=== PATIENT | male | born 1970 | race Caucasian/White ===

== ENCOUNTER 2022-04-01 00:34 | Emergency (ER) | payer SELFPAY ==
[2022-04-01] VITALS (34 sets, daily range): BP systolic 117–135; BP diastolic 87–95; PULSE 72–102; RESP 13–23; TEMP 36.6; O2SAT 100
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
[2022-04-01] MEDS: SODIUM CHLORIDE 0.9% IV 1,000 ML 999 ML IV CONT (02:29)
[2022-04-01 02:30] LABS: Basophils Absolute Auto 0.1 K/mm3 (0.0-0.1); Basophils Percent Auto 0.6 % (0.2-1.2); Eosinophils Absolute Auto 0.2 K/mm3 (0-0.3); Eosinophils Percent Auto 2.6 % (0-4.4); Hematocrit 45.4 % (42.0-52.0); Hemoglobin 14.7 g/dL (14.0-18.0); Immature Granulocyte Absolute 0.04 K/mm3 (0.00-0.031); Immature Granulocyte Percent A 0.5 % (0-0.5); Lymphocytes Absolute Auto 1.51 K/mm3 (0.9-3.2); Lymphocytes Percent Auto 17.3 % (18.3-44.2); Mean Corpuscular HGB Conc 32.4 g/dl (32-36); Mean Corpuscular Hemoglobin 30.1 pg (26-34); Mean Platelet Volume 10.2 fl (7.4-10.4); Monocytes Percent Auto 11.1 % (2.6-8.5); Neutrophils Percent Auto 67.9 % (45.5-73.1); Platelet Count Result 255 k/mm3 (150-375); Red Blood Count 4.88 M/mm3 (4.6-6.20); White Blood Count 8.8 K/mm3 (4.5-10.0)
[2022-04-01] MEDS: MORPHINE SULFATE (*CRX) 2 MG/ML INJ IV PUSH ×2 (02:30→03:47)
[2022-04-01] MEDS: ONDANSETRON INJ 4 MG/2 ML VIAL IV PUSH (02:30)
[2022-04-01 03:02] LABS: Alanine Aminotransferase 33 U/L (6-50); Alkaline Phosphatase 85 U/L (38-126); Aspartate Amino Transferase 49 U/L (17-59); Bilirubin,Total 0.6 mg/dL (0.2-1.3); Blood Urea Nitrogen 17 mg/dL (9-20); Calcium 8.5 mg/dL (8.4-10.2); Carbon Dioxide 28 mmol/L (22-30); Creatine Kinase 630 U/L (55-170); Estimated Glomerular Filt Rate > 60; Glucose 101 mg/dL (65-110); Potassium 4.4 mmol/L (3.4-5.0); Sodium 136 mmol/L (137-145)
[2022-04-01 03:24] LABS: Anion Gap 4 mmol/L (8-16); Chloride 104 mmol/L (98-107)
--- NOTE | 2022-04-01 03:49 | PC.NURSE ---
Updated pt on plan of care. pt resting comfortably inbed, NAD, respirations even and unlabored.
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
--- NOTE | 2022-04-01 06:35 | PC.NURSE ---
fiberglass splint applied to pt L ankle. (posterior and stirrup). Pt tolerated well. Dr. Valdivia at bedside and approves of splint.
== END 2022-04-01 07:29 | disposition home or self-care (01) ==
PROVIDERS: Emergency Provider Physician Assistant
DX: S89.392A Other physeal fracture of lower end of left fibula, initial encounter for closed fracture (principal); S92.355A Nondisplaced fracture of fifth metatarsal bone, left foot, initial encounter for closed fracture; S22.42XA Multiple fractures of ribs, left side, initial encounter for closed fracture; M47.812 Spondylosis without myelopathy or radiculopathy, cervical region; Y08.02XA Assault by strike by baseball bat, initial encounter
CPT/HCPCS: 29515; 36415; 70450; 70486; 71111; 72125; 73560; 73610; 73630; 80053; 82550; 85025; 96361; 96374; 96375; 96376; 99284; J2270; J2405; J7030

== ENCOUNTER 2022-04-10 02:28 | Emergency (ER) | payer SELFPAY ==
--- NOTE | ~2022-04-10 | XR_ITS ---
Left foot Technique: AP, oblique, and lateral views were obtained. Clinical History: Fracture Findings: There is an oblique, traumatic fracture through the distal fifth metatarsal shaft. Fracture is mildly displaced approximately 5 mm. No other fracture or dislocation seen in the foot.. Joint sp aces are preserved without erosive or degenerative change. Soft tissues are unremarkable. Impression: Traumatic, oblique, displaced fracture of the distal fifth metatarsal shaft. Reviewed, dictated and finalized at location . D OPERATIONS TECHNICIAN Impression: Traumatic, oblique, displaced fracture of the distal fifth metatarsal shaft.
--- NOTE | ~2022-04-10 | XR_ITS ---
Left ankle Technique: AP, oblique, and lateral views were obtained. Clinical History: Fracture Findings: There is a transverse, nondisplaced fracture of the distal fibular shaft, located 6.5 cm pr oximal to the distal tip of the lateral malleolus. There is an area of sclerotic change of the distal tibial metaphyseal region, suggestive of nonossifying fibroma.. Ankle mortise and other visualized j oint spaces are preserved. Soft tissues are otherwise unremarkable. Impression: Transverse, nondisplaced traumatic fracture of the distal fibular shaft, as detailed above. 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 Reviewed, dictated and finalized at location M. RCYCLE SALES ASSOCIATE Impression: Transverse, nondisplaced traumatic fracture of the distal fibular shaft, as det aden above. Sclerotic lesion suggestive of nonossifying fibroma at the distal tibial metaph yseal region.
[2022-04-10 02:31] VITALS: BP 152/96; PULSE 80; RESP 18; TEMP 36.6; O2SAT 100
[2022-04-10] MEDS: IBUPROFEN 600 MG TABLET PO (03:23)
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
--- NOTE | 2022-04-10 07:47 | PC.NURSE ---
mobile home lot utility worker at bedside.
== END 2022-04-10 09:07 | disposition home or self-care (01) ==
PROVIDERS: Emergency Provider General Practice; PCP Emergency Medicine
DX: S92.352A Displaced fracture of fifth metatarsal bone, left foot, initial encounter for closed fracture (principal); Y09 Assault by unspecified means
CPT/HCPCS: 29515; 73610; 73630; 99284; A9270

== ENCOUNTER 2022-08-03 10:40 | Emergency (ER) | payer SELFPAY ==
[2022-08-03 10:47] VITALS: BP 117/81; PULSE 97; RESP 26; TEMP 36.5; O2SAT 100
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
--- NOTE | 2022-08-03 11:05 | ED.GENADULT ---
HPI - General Adult General Chief complaint: Unspecified Stated complaint: food bolus Time Seen by Provider: 08/03/22 11:01 History of Present Illness HPI narrative: 52-year-old male presents to the emergency room after feeling like he had some meat stuck in his throat through the night. He says that since he has been here it finally passed through and he feels like it is cleared. He has been able to drink a glass of water without difficulty. He declines IV or lab testing at this point. He says he is just tired and needs some sleep. No chest pain or abdominal pain. Denies any other symptoms of illness. Related Data Allergies Allergy/AdvReac Type Severity Reaction Status Date / Time Penicillins Allergy Anaphylaxis Verified 04/01/22 02:09 Review of Systems Review of Systems: CONSTITUTIONAL: Denies fever, chills, or sweats. EYES: Denies visual changes, redness, or discharge. ENT: Denies rhinorrhea, congestion, sore throat, or otalgia. CARDIOVASCULAR: Denies chest pain, palpitations, or edema. RESPIRATORY: Denies cough or dyspnea. GASTROINTESTINAL: as per HPI GENITOURINARY: Denies dysuria or hematuria. SKIN: Denies rash or itching. MUSCULOSKELETAL: Denies back pain, joint pain, or myalgia. NEUROLOGIC: Denies headache, numbness, dizziness, or weakness. PSYCHIATRIC: Denies anxiety or depression. PMFSH Past Medical History Medical History Patient denies medical problems Social History Social History Smoking status: Never smoker Exam Narrative: GENERAL: Well-appearing, well-nourished, and in no acute distress. HEAD: Normocephalic, atraumatic. EYES: PERRLA and EOMI. NECK: Supple. No adenopathy or masses. No carotid bruits or JVD CHEST: Clear to auscultation. No respiratory distress. No wheezes rales or rhonchi HEART: Regular rate and rhythm. No murmur heard. Normal peripheral pulses. ABDOMEN: Soft, nontender, nondistended, normal active bowel sounds. EXTREMITIES: Normal range of motion. No edema. SKIN: Warm, dry, no rash. NEURO: No focal deficits. Alert and oriented x3. PSYCH: Normal mood and affect. Course Vital Signs Vital signs: Vital Signs Temperature 36.5 C 08/03/22 10:47 Pulse Rate 97 08/03/22 10:47 Respiratory Rate 26 H 08/03/22 10:47 Blood Pressure 117/81 08/03/22 10:47 Pulse Oximetry 100 08/03/22 10:47 Oxygen Delivery Room Air 08/03/22 10:47 Temperature 36.5 C 08/03/22 10:47 Pulse Rate 97 08/03/22 10:47 Respiratory Rate 26 H 08/03/22 10:47 Blood Pressure 117/81 08/03/22 10:47 Pulse Oximetry 100 08/03/22 10:47 Oxygen Delivery Room Air 08/03/22 10:47 Medical Decision Making Vital Signs Vital Signs: Vital Signs Temperature 36.5 C 08/03/22 10:47 Pulse Rate 97 08/03/22 10:47 Respiratory Rate 26 H 08/03/22 10:47 Blood Pressure 117/81 08/03/22 10:47 Pulse Oximetry 100 08/03/22 10:47 Oxygen Delivery Room Air 08/03/22 10:47 Temperature 36.5 C 08/03/22 10:47 Pulse Rate 97 08/03/22 10:47 Respiratory Rate 26 H 08/03/22 10:47 Blood Pressure 117/81 08/03/22 10:47 Pulse Oximetry 100 08/03/22 10:47 Oxygen Delivery Room Air 08/03/22 10:47 Discharge Plan Discharge Clinical Impression: Dysphagia Patient Disposition: Home, Self-Care Condition: Stable Instructions: Antibiotic Form, Esophageal Foreign Body (ED) Additional Instructions: Follow-up with primary care provider within the week. You may need a referral to a GI provider for endoscopy to evaluate for any abnormality that could cause blockage. Prescriptions: No Action acetaminophen 500 mg tablet 1,000 mg PO TID PRN (Reason: joy) 7 Days Qty: 42 0RF ibuprofen 800 mg tablet 800 mg PO TID PRN (Reason: pain) 7 Days Qty: 21 0RF hydrocodone-acetaminophen 5-325 mg tablet 12 tablet PO Q4H PRN (Reason: pain)
--- NOTE | 2022-08-03 11:16 | PC.NURSE ---
pt states he had a piece of steak stuck in his throat for 8-10 hours. states it finally went down 10 minutes ago while drinking water and now he feels better.
[2022-08-03 11:38] VITALS: BP 142/84; PULSE 84; RESP 16; O2SAT 99
== END 2022-08-03 11:40 | disposition home or self-care (01) ==
PROVIDERS: Emergency Provider Nurse Practitioner Family
DX: R13.10 Dysphagia, unspecified (principal)
CPT/HCPCS: 99281

== ENCOUNTER 2024-10-17 08:08 | Emergency (ER) | payer OTHER, MEDICAID, SELFPAY ==
--- NOTE | ~2024-10-17 | CT_ITS ---
EXAMINATION: CT cervical spine wo con DATE: 10/17/2024 09:02 INDICATION: Neck pain TECHNIQUE: Computed tomography (CT) of the cervical spine was performed without intravenous contrast. Automated exposure control and iterative reconstruction technique were employed. The dose-length product was 243.05 mGy-cm. COMPARISON: None FINDINGS: Alignment is normal. Vertebral body heights are normal. No fracture. Moderate disc height loss and uncovertebral osteoarthritis at C3-C4 through C6-C7 and mild disc height loss at C2-C3 and C7-T1. Posterior disc osteophyte complexes contribute to mild central canal stenosis at C3-C4 through C6-C7. Severe facet osteoarthritis on the left at C2-C3 through C4-C5 and bilaterally at C7-T1 and T1-T2. Mild to moderate facet osteoarthritis throughout the remainder of the cervical spine. Multilevel uncovertebral osteoarthritis contributes to moderate neural from stenosis on the left at C3-C4, bilaterally at C5-C6 and C6-C7 with mild neural from stenosis throughout the remainder of the cervical spine. Cervic al soft tissues are unremarkable. Mild emphysema the visualized upper lungs with mild biapical pleural-parenchymal scarring. IMPRESSION: 1. Moderate cervical spondylosis. No acute osseous adenopathy. 2. Mild emphysema. Reviewed, dictated and finalized at location A.
--- OUTSIDE RECORDS SUMMARY | 2024-10-17 08:10 | XMS_ITS | Clinical Summary ---
Author Organization [facility] Address [address] [place] [id number] Care Team Providers Care Tactical Air Defense Controller Name Role Phone Unknown, Notinfile Primary Care Provider Unavail able Allergies Active Allergy Reactions Criticality Noted Date Comments Penicillins Hives Medium 08/05/2023 Social History Tobacco Use Types Packs/Day Years Used Date Smoking Tobacco: Never Assessed Personal Safety Answer Date Recorded Have you ever been in or are you currently in a harmful physical or emotional relationship or is someone making you feel afraid or unsafe? Denies 08/05/2023 Sex and Gender Information Value Date Recorded Sex Assigned at Not on file Legal Sex Male 9:14 PM CDT Gender Identity Not on file Sexual Orientation Not on file Last Filed Vital Signs Vital Sign Reading Time Taken Comments Blood Pressure 146/98 08/05/2023 11:49 PM CDT Pulse 88 08/05/2023 11:49 PM CDT Temperature 37.3 C (99.1 F) 08/05/2023 9:15 PM CDT Respiratory Rate 16 08/05/2023 9:15 PM CDT Oxygen Saturation 99% 08/05/2023 11:49 PM CDT Inhaled Oxygen Concentration - - Weight 67.3 kg (148 lb 5.9 oz) 08/05/2023 9:15 P M CDT Height 177.8 cm (5' 10) 08/05/2023 9:15 PM CDT Body Mass Index 21.29 08/05/2023 9:15 PM CDT Plan of Treatment [place] [id number] Care Teams Tactical Air Defense Controller Relationship Specialty Start Date End Date Unknown, Notinfile PCP - General 08/05/23
--- OUTSIDE RECORDS SUMMARY | 2024-10-17 08:10 | XMS_ITS | Clinical Summary ---
Author Organization [facility] Laura Ratliff nob Address [address] [place] [address] Care Team Providers Care Tie Sawyer Name Role Phone Unavailable Primary Care Provider Unavailabl e Allergies Active Allergy Reactions Criticality Noted Date Comments Penicillins Other (See Comments) Low 10/23/2023 Reported as a child Medications doxycycline hyclate (VIBRAMYCIN) 100 mg capsule Take 1 Capsule (100 mg) by mouth 2 times daily. 28 Capsule 10/23/2023 Active Active Problems No known active problems Encounters Date Type Department Care Team Description 08/04/2024 External Device Data [facility] ABSTRACTION Provider, Abstract from Last 3 Months Social History Tobacco Use Types Packs/Day Years Used Date Smoking Tobacco: Never Smokeless Tobacco: Never Tobacco Cessation:Counseling Given: Not Answered Alcohol Use Standard Drinks/Week Comments Not Currently 0 (1 standard drink = 0.6 oz pur e alcohol) Sex and Gender Information Value Date Recorded Sex Assigned at Not on file Legal Sex Male 4:23 PM CDT Gender Identity Not on file Sexual Orientation Not on file Last Filed Vital Signs Vital Sign Reading Time Taken Comments Blood Pressure 130/72 10/23/2023 4:33 PM CDT Pulse 100 10/23/2023 4:33 PM CDT Temperature 37.2 C (98.9 F) 10/23/2023 4:33 PM CDT Respiratory Rate 16 10/23/2023 4:33 PM CDT Oxygen Saturation 98% 10/23/2023 4:33 PM CDT Inhaled Oxygen Concentration - - Weight 68.9 kg (152 lb) 10/23/2023 4:33 PM CDT Height 177.8 cm (5' 10) 10/23/2023 4:33 PM CDT Body Mass Index 21.81 10/23/2023 4:33 PM CDT Plan of Treatment Health Maintenance Due Date Last Done Comments DTAP/TDAP/TD VACCINES (1 - Tdap) 1989 HEPATITIS B VACCINES (1 of 3 - 19+ 3-dose series) 06/1989 COLORECTAL SCREENING 07/17/2015 Colorectal Cancer Screening 07/17/2015 FIT-DNA Q 3 years 07/17/2015 FIT/FOBT Q 1 year 07/17/2015 Flex Sig/CT Colonography Q 5 years 07/17/2015 ZOSTER VACCINE (1 of 2) 2020 INFLUENZA VACCINE (#1) 2024 10/23/2023
[2024-10-17 08:12] VITALS: BP 139/95; PULSE 79; RESP 16; TEMP 36.6; O2SAT 100
--- OUTSIDE RECORDS SUMMARY | 2024-10-17 09:12 | XMS_ITS | Clinical Summary ---
Author Organization [facility] Laura Ratliff nob Address [address] [place] [address] Care Team Providers Care Cabana Attendant Name Role Phone Unavailable Primary Care Provider [...]
--- OUTSIDE RECORDS SUMMARY | 2024-10-17 09:12 | XMS_ITS | Clinical Summary ---
Author Organization [facility] Address [address] [place] [id number] Care Team Providers Care Utilities Estimator And Drafter Name Role Phone Unknown, Notinfile Primary Care [...] of Treatment Not on file Insurance IDPA Care Teams Utilities Estimator And Drafter Relationship Specialty Start Date End Date Unknown, Notinfile PCP - General 08/05/23
--- NOTE | 2024-10-17 09:24 | PC.NURSE ---
Patient refused IM medication stating I really dont like shots. Provider will be made aware patient is requesting PO medication instead
--- NOTE | 2024-10-17 09:58 | ED_ITS ---
HPI - General Adult General Chief complaint: Neck Pain/Injury Stated complaint: neck pain Time Seen by Provider: 10/17/24 08:46 History of Present Illness HPI narrative: Patient 4-year-old gentleman emergency department with chief complaint of pain. He reports that ?he was bending over to pickle processor harness and started having pain in the left side of his neck that radiates to his upper shoulder patient reports pain is worse with movement and improved with rest Related Data Allergies Allergy/AdvReac Type Severity Reaction Status Date / Time Penicillins Allergy Anaphylaxis Verified 10/17/24 08:16 Review of Systems Review of Systems: A 10 system review of systems was completed on the patient and is negative except for what is stated in the HPI. Nursing and ancillary documentation was reviewed. [facility] Past Medical History Medical History Patient denies medical problems Social History Social History Smoking status: Never smoker Exam Narrative: GENERAL: Well-appearing, well-nourished, and in no acute distress. HEAD: Normocephalic, atraumatic. EYES: PERRLA and EOMI. ENT: Nares clear, no rhinorrhea or epistaxis. Mucous membranes moist. NECK: Supple. Tenderness to palpation in the paraspinous muscles in left-sided neck CHEST: Clear to auscultation. No respiratory distress. HEART: Regular rate and rhythm. No murmur heard. Normal peripheral pulses. ABDOMEN: Soft, nontender, nondistended, normal active bowel sounds. EXTREMITIES: Normal range of motion. No edema. SKIN: Warm, dry, no rash. NEURO: No focal deficits. Alert and oriented x3. PSYCH: Normal mood and affect. Course Vital Signs Vital signs: Vital Signs Pulse Rate 79 10/17/24 08:12 Respiratory Rate 16 10/17/24 08:12 Blood Pressure 139/95 H 10/17/24 08:12 Pulse Oximetry 100 10/17/24 08:12 Oxygen Delivery Room Air 10/17/24 08:12 Pulse Rate 79 10/17/24 08:12 Respiratory Rate 16 10/17/24 08:12 Blood Pressure 139/95 H 10/17/24 08:12 Pulse Oximetry 100 10/17/24 08:12 Oxygen Delivery Room Air 10/17/24 08:12 Medical Decision Making MDM Narrative Medical decision making narrative: Differential diagnosis includes cervical strain, cervical spine fractures CT C-spine 1. Moderate cervical spondylosis. No acute osseous adenopathy. 2. Mild emphysema Vital Signs Vital Signs: Vital Signs Pulse Rate 79 10/17/24 08:12 Respiratory Rate 16 10/17/24 08:12 Blood Pressure 139/95 H 10/17/24 08:12 Pulse Oximetry 100 10/17/24 08:12 Oxygen Delivery Room Air 10/17/24 08:12 Pulse Rate 79 10/17/24 08:12 Respiratory Rate 16 10/17/24 08:12 Blood Pressure 139/95 H 10/17/24 08:12 Pulse Oximetry 100 10/17/24 08:12 Oxygen Delivery Room Air 10/17/24 08:12 Discharge Plan Discharge Clinical Impression: Strain of neck muscle Patient Disposition: Home Condition: Stable Instructions: Antibiotic Form, Cervical Strain (ED), Neck Pain (ED) Patient Language: Citizen Of [place] Prescriptions: New diclofenac potassium 50 mg tablet 50 mg PO TID PRN (Reason: pain) Qty: 30 0RF cyclobenzaprine 10 mg tablet 10 mg PO TID PRN (Reason: muscle spasm) Qty: 21 0RF prednisone 20 mg tablet 40 mg PO DAILY 5 Days Qty: 10 0RF No Action acetaminophen 500 mg tablet 1,000 mg PO TID PRN (Reason: joy) 7 Days Qty: 42 0RF ibuprofen 800 mg tablet 800 mg PO TID PRN (Reason: pain) 7 Days Qty: 21 0RF hydrocodone-acetaminophen 5-325 mg tablet 12 tablet PO Q4H PRN (Reason: pain) Qty: 12 0RF hydrocodone-acetaminophen 5-325 mg tablet 1 tablet PO Q6H PRN (Reason: pain) Qty: 12 0RF Follow-up/Referrals: Juan Collins MD [Physician, Family Practice] PHYSICIAN,SENIOR AUDIT MANAGER [Primary Care Provider, Internal Medicine] Time of Disposition: 10:02
[2024-10-17] MEDS: LIDOCAINE 5% PATCH 1 PATCH TRANSDERM (10:00)
== END 2024-10-17 10:25 | disposition home or self-care (01) ==
PROVIDERS: Emergency Provider Emergency Medicine
DX: S16.1XXA Strain of muscle, fascia and tendon at neck level, initial encounter (principal); M47.812 Spondylosis without myelopathy or radiculopathy, cervical region; J43.9 Emphysema, unspecified; X50.0XXA Overexertion from strenuous movement or load, initial encounter
CPT/HCPCS: 72125; 96372; 99284; A9270